=== PATIENT | female | born 1990 | race Caucasian/White ===

== ENCOUNTER 2021-02-01 13:13 | Observation (INO) ==
[2021-02-01 14:00] LABS: Basophils # (auto) 0.02 K/uL (0-0.2); Basophils % (auto) 0.1 %; Eosinophils # (auto) 0.01 K/uL (0-0.5); Eosinophils % (auto) 0.1 %; Hematocrit (blood only) 39.4 % (37-47); Hemoglobin 13.8 g/dL (12.0-16.0); Immature Granulocytes # (auto) 0.03 K/uL (0.00-0.02); Immature Granulocytes % (auto) 0.2 %; Lymphocytes % (auto) 18.7 %; Mean Corpuscular Hemoglobin 32.9 pg (25-34); Mean Platelet Volume 9.5 fL (7.4-10.4); Monocytes # (auto) 0.58 K/uL (0.11-0.59); Monocytes % (auto) 3.7 %; Neutrophils # (auto) 11.98 K/uL (1.4-6.5); Neutrophils % (auto) 77.2 %; Platelet Count 360 K/uL (130-400); RDW Standard Deviation 40.8 fL (36.4-46.3); Red Blood Count 4.19 M/uL (4.2-5.4); White Blood Count 15.52 K/uL (4.8-10.8)
[2021-02-01 14:18] LABS: BUN Creatinine Ratio 10.2 (10-20); Creatinine Clr Calc Pharmacy 102.6 ml/min; Est GFR (African American) 116.6 ml/min; Est GFR (Non-African American) 100.6 ml/min; Potassium 3.8 mmol/L (3.5-5.1)
[2021-02-01 14:20] LABS: Albumin Globulin Ratio 1.1 (0.9-2); Bilirubin,Total 0.3 mg/dl (0.2-1); Globulin 3.7 gm/dl (2.5-4.0); Total Protein 7.7 gm/dl (6.4-8.2)
[2021-02-01] MEDS ORDERED: ACETAMINOPHEN 1000 MG/100 ML IV IV ONE (16:15)
[2021-02-01] MEDS ORDERED: ONDANSETRON INJ 2 MG/ML 2 ML VIAL IV STA ×3 (16:15→23:25)
[2021-02-01 17:02] LABS: Appearance Urine Clear (Clear); Bacteria Urine Automated 1+ (Negative); Bilirubin Urine Negative (Negative); Blood Urine Negative (Negative); Color Urine Dark Yellow; Epithelial Cell Urine Auto >30 /lpf (0-5); Glucose Urine UA Negative (Negative); Ketones Urine 3+ (Negative); Leukocyte Esterase Urine Negative (Negative); Nitrite Urine Negative (Negative); Protein Urine Trace (Negative); Specific Gravity Urine 1.024 (1.000-1.030); Urobilinogen Urine Negative (Negative); pH Urine 5.5 (4.5-7.5)
[2021-02-01 17:18] LABS: RBC Urine Automated 0-4 /hpf (0-4)
--- NOTE | 2021-02-01 18:58 | Ultrasound Report ---
ULTRASOUND OF THE APPENDIX CLINICAL HISTORY: Right lower quadrant abdominal pain. COMPARISON STUDY: No priors. FINDINGS: Real-time, grayscale, and color flow sonography of the right lower quadrant was performed t o assess for acute appendicitis. The appendix was not discretely visualized. No inflammatory changes or free fluid are seen in the right lower quadrant. No lymphadenopathy was seen. IMPRESSION: Nonvisualization of the appendix. Note that this does not exclude acute appendicitis. ACT 112: Negative or not required by law. Electronically signed by: Justin Tobias M.D. 02/01/2021 6:57 PM
--- NOTE | 2021-02-01 19:02 | Ultrasound Report ---
ULTRASOUND OF THE PELVIS CLINICAL HISTORY: Right pelvic pain. The patient is reportedly . COMPARISON STUDY: No priors. TECHNIQUE: Real-time, grayscale, and color flow sonography of the pelvis is performed both transabdom inally and endovaginally. Images are reviewed in the transverse and longitudinal planes. The endovagi nal examination is performed for better assessment of the adnexa. FINDINGS: Uterus: The uterus is normal in size and echotexture, measuring 7.0 x 3.1 x 3.5 cm. Endometrium: No intrauterine gestation is identified. The endometrium is normal in appearance, and th e endometrial stripe is normal in thickness measuring up to 0.5 cm. Ovaries: The left ovary was not clearly visualized due to overlying bowel gas and complex free fluid. The right ovary is normal as imaged, measuring 2.6 x 1.2 x 2.7 cm. Normal Doppler waveforms are show n within the right ovary. Pelvis: Complex fluid is seen throughout the adnexa there is an indeterminant abnormal cystic structu re in the right adnexa which measures up to 1.5 cm. This may represent a gestational sac. The left k idney is located in the pelvis. IMPRESSION: 1. No intrauterine gestation is identified. 2. There is an abnormal cystic structure in the right adnexa which is discrete from the right ovary a nd may represent a gestational sac. Additionally, there is a moderate volume of complex free fluid se en throughout the pelvis that likely represents blood products. Findings are highly concerning for a ruptured ectopic . Gynecological surgical consultation is advised. 3. The left ovary was not visualized. 4. Left pelvic kidney. ACT 112: Negative or not required by law. Electronically signed by: Justin Tobias M.D. 02/01/2021 7:01 PM
[2021-02-01] MEDS ORDERED: MoRPHine SULFATE 4 MG/ML 1 ML CARP\\VIAL IV STA ×2 (20:01→23:25)
--- NOTE | 2021-02-01 20:25 | Emergency Department Note ---
History of Present Illness General Chief complaint: Abdominal Pain Stated complaint: RLQ ABDOMINAL PAIN,5 WKS ,NAUSEA,VOMITING Time Seen by Provider: 02/01/21 15:47 History of Present Illness Maximum Pain Intensity: 7 30-year-old female who presents to the emergency department with complaint of right lower quadrant abdominal pain that started this morning around 8:30 AM. The patient reports that the pain initially was intermittent in nature, and is now constant. The pain is worsened with ambulation and when trying to stand erect. The patient has had mild nausea without vomiting. The patient denies any urinary symptoms, diarrhea or constipation. The patient reports that she is currently approximately 5 weeks after undergoing in vitro fertilization. This was but done by at [facility] in [place]. The patient has had subsequent normal ultrasound studies since the transfer. Patient reports a prior history of a left pelvic kidney. She has had bilateral tubal ligation as well in March 2019. The patient rates her discomfort a 7 out of 10. Home Medications Medication Instructions Recorded Confirmed Type alprazolam 0.5 mg tablet (Xanax) 0.5 mg PO TID PRN 02/01/21 02/01/21 History estradiol 2 mg tablet (Estrace) 6 mg PO HS 02/01/21 02/01/21 History progesterone micronized 100 mg 0 mg VAGINAL TID 02/01/21 02/01/21 History capsule (Prometrium) ibuprofen 600 mg tablet 600 mg PO Q4H PRN #30 tab 02/02/21 Rx oxycodone-acetaminophen 5 mg-325 1 tab PO Q4H PRN #14 tab 02/02/21 Rx mg tablet (Percocet) Allergies Allergy/AdvReac Type Severity Reaction Status Date / Time latex Allergy Severe Anaphylaxis Verified 02/02/21 03:26 ,Rash avocado AdvReac Severe Anaphylaxis Verified 02/02/21 03:26 ,Rash Past Med/Surg History Medical History History of in vitro fertilization Peroneal tendonitis Single pelvic kidney Surgical History History of bilateral salpingectomy Social History Smoking Status: Never smoker Second Hand Exposure: No; Do You Dip or Chew Tobacco: No; Tobacco Cessation Education Requested by Patient: No Hx Alcohol Use: No Hx Substance Use: No Preferred Language: Vietnamese Communication Ability: Effective Bacteriologist Dairy Required: No Beliefs That Will Affect Care: None marital status: Single Current Living Situation: Significant Other current occupational status: employed Other Information That Helps Us Care for You: No Feels Safe at Home: Yes Assistive Devices: None Review of Systems 10 system review was performed and was negative except for pertinent positives and negatives as indicated in history of present illness Physical Exam Vital Signs Vital Signs - 24 hr 02/01/21 13:15 02/01/21 15:49 02/01/21 17:16 Temperature 36.6 C Temperature Source Temporal Artery Scan Pulse Rate 111 H Pulse Rate [Finger] 104 H 77 Respiratory Rate 18 17 16 Respiratory Effort / Characteristics Non-Labored Respiratory Depth Normal Respiratory Pattern Blood Pressure 140/88 Blood Pressure [Right Arm] 137/84 126/89 Blood Pressure Mean 105 Blood Pressure Mean [Right Arm] 101 101 Blood Pressure Position [Right Arm] Pulse Oximetry 95 98 96 Oxygen Delivery Method Room Air Room Air Sepsis Recent Fever Within 48 Hours No Sepsis New/Unexplained Change in Mental Status No Sepsis Action Taken by Nursing No Action Required 02/01/21 19:18 02/01/21 23:22 Temperature Temperature Source Pulse Rate Pulse Rate [Finger] 79 97 H Respiratory Rate 16 18 Respiratory Effort / Characteristics Non-Labored Spontaneous Respiratory Depth Normal Respiratory Pattern Regular Blood Pressure Blood Pressure [Right Arm] 126/88 121/76 Blood Pressure Mean Blood Pressure Mean [Right Arm] 100 91 Blood Pressure Position [Right Arm] Lying Pulse Oximetry 95 96 Oxygen Delivery Method Room Air Sepsis Recent Fever Within 48 Hours Sepsis New/Unexplained Change in Mental Status Sepsis Action Taken by Nursing CONSTITUTIONAL: Healthy and well nourished. Patient does not appear in any acute distress. HEENT: No scleral icterus or conjunctival injection/pallor. NECK: Full active range of motion without discomfort. LYMPHATICS: No cervical chain adenopathy. RESPIRATORY: Clear to auscultation bilaterally with no wheezing, crackles, rhonchi or stridor. CARDIOVASCULAR: Regular rate and rhythm with no murmurs, rubs or gallops. GASTROINTESTINAL: Bowel sounds present in all quadrants. McBurney's point tenderness with mildly positive Rovsing sign. Negative heel tap. Negative psoas/obturator sign. Negative CVA tenderness. No abdominal rigidity, guarding or rebound. MUSCULOSKELETAL: Full range of motion of all joints without discomfort. INTEGUMENTARY: No rash or other significant dermatologic conditions noted. HEMATOLOGIC: No ecchymosis or petechiae. PSYCHIATRIC: Positive affect. NEUROLOGIC: No focal neurologic deficits noted. Course Course Patient history and physical exam were performed. Nurses notes were reviewed. Vital signs were reviewed, showing an initial heart rate of 111 bpm. The patient is afebrile and normotensive. IV access was established, and labs were drawn. The patient was administered IV Tylenol and Zofran. Review of labs shows a moderate leukocytosis of 15.52 with left shift and bandemia. Hemoglobin and platelet count are normal. CMP shows a mildly elevated glucose of 137, otherwise remaining labs were normal. Initial quantitative hCG could not be performed secondary to hemolysis. A recollect was performed with a notable delay with results showing a quantitative hCG of 935. Urinalysis shows 3+ keton uria, proteinuria without evidence for infection. I discussed imaging choice with the radiologist, who recommended performing initial ultrasound of the appendix and pelvis. Ultrasound was concerning for a possible hemorrhagic ectopic , seen adjacent to the right ovary. Ultrasound does not show any intrauterine findings or sac. The appendix could not be visualized with ultrasound studies. Findings were discussed with the patient. The case was also further discussed with Dr. Smith, as well as Dr. Rosen, [facility] on-call. Given history of IVF, she does not suspect that this is a hemorrhagic ectopic , but has recommended further imaging to rule out appendicitis. She also noted that the patient has previously been seen by Dr. Sullivan, and recommended that I call the [facility] service with quantitative hCG levels when completed. I discussed the case again with Dr. Smith, who was in agreement at this point to do CT imaging since there is no evidence for intrauterine . The patient is in agreement with this decision as well. CT of the abdomen and pelvis with IV contrast was concerning for active extravasation. At this point, urgent consultation was placed with Dr. Sullivan. A repeat H&H was drawn, with a 1.5 g/dL drop over the past 5 hours. Type and cross for 4 units of blood, and administration of 2 units of packed red blood cells were ordered. The patient did sign informed consent for blood transfusion. Dr. Sullivan evaluate the patient, and plans operative intervention. Please see her dictation for further treatment and final disposition. While the patient was awaiting transfer to the the OR, COVID-19 PCR testing was ordered and was negative. The patient also was administered IV morphine and Zofran for pain and nausea. Please see Dr. Sullivan's dictation for further treatment and final disposition. Administered Medications Lactated Ringer's (Lr) 1,000 mls @ 125 mls/hr IV .Q8H DIONTE Stop: 03/04/21 00:14 Last Infusion: 02/02/21 09:00 Dose: 0 mls/hr Documented by: [id number] Infusion: 02/02/21 06:40 Dose: 125 mls/hr Documented by: [id number] Infusion: 02/02/21 06:24 Dose: 0 mls/hr Documented by: [id number] Admin: 02/02/21 03:58 Dose: 125 mls/hr Documented by: [id number] Acetaminophen (Ofirmev) 1,000 mg in 100 mls @ 400 mls/hr IV Q8H PRN PRN Reason: Pain Stop: 02/05/21 01:30 Last Infusion: 02/02/21 06:40 Dose: 0 mls/hr Documented by: [id number] Admin: 02/02/21 06:24 Dose: 400 mls/hr Documented by: [id number] Ibuprofen (Ibuprofen 600 Mg Tab) 600 mg PO Q4H PRN PRN Reason: pain, ASHLEY, cramping or fever Stop: 03/04/21 00:04 Last Admin: 02/02/21 09:18 Dose: 600 mg Documented by: [id number] Simethicone (Simethicone 80 Mg Chew) 80 mg PO TID PRN PRN Reason: Gas Stop: 03/04/21 00:04 Last Admin: 02/02/21 06:14 Dose: 80 mg Documented by: [id number] Discontinued Medications Acetaminophen (Acetaminophen 1000 Mg/100 Ml Iv) 1,000 mg IV ONE ONE Stop: 02/01/21 16:16 Last Admin: 02/01/21 16:28 Dose: 1,000 mg Documented by: [id number] Bupivacaine HCl (Bupivacaine 0.5 % 5 Mg/1 Ml Mpf 30ml Vial) Confirm Administered Dose 30 ml .ROUTE .STK-MED ONE Stop: 02/01/21 23:46 Last Admin: 02/02/21 01:23 Dose: 12 ml Documented by: [id number] Epinephrine HCl (Epinephrine Inj 1 Mg/Ml Amp) Confirm Administered Dose 1 mg .ROUTE .STK-MED ONE Stop: 02/01/21 23:46 Last Admin: 02/02/21 01:25 Dose: 0.15 mg Documented by: [id number] Cefazolin Sodium (Ancef 2000mg) 2,000 mg in 15 mls @ 3.75 mls/min IV PREOP ONE Stop: 02/01/21 22:36 Last Admin: 02/01/21 22:44 Dose: 3.75 mls/min Documented by: [id number] Ioversol (Optiray 320 100ml) 97 ml IV ONCE ONE Stop: 02/01/21 20:40 Last Admin: 02/01/21 20:39 Dose: 97 ml Documented by: [id number] Miscellaneous ( Floseal Hemostatic Matrix 10ml) 10 ml TOP ONCE ONE Stop: 02/02/21 01:27 Last Admin: 02/02/21 01:26 Dose: 10 ml Documented by: [id number] Morphine Sulfate (Morphine Sulfate 4 Mg/Ml 1 Ml Carp\Vial) 4 mg IV NOW STA Stop: 02/01/21 20:02 Last Admin: 02/01/21 20:09 Dose: 4 mg Documented by: [id number] Ondansetron HCl (Ondansetron Inj 2 Mg/Ml 2 Ml Vial) 4 mg IV NOW STA Stop: 02/01/21 16:16 Last Admin: 02/01/21 16:28 Dose: 4 mg Documented by: [id number] Ondansetron HCl (Ondansetron Inj 2 Mg/Ml 2 Ml Vial) 4 mg IV NOW STA Stop: 02/01/21 20:02 Last Admin: 02/01/21 20:09 Dose: 4 mg Documented by: [id number] Ondansetron HCl (Ondansetron Inj 2 Mg/Ml 2 Ml Vial) 4 mg IV ONCE PRN PRN Reason: PACU Use Only-Nausea/Vomiting Stop: 02/02/21 08:25 Last Admin: 02/02/21 02:14 Dose: 4 mg Documented by: [id number] Critical Care Time Critical Care Time: Yes Total Critical Care Time: 40 I have personally spent approximately 40 minutes of critical care time in the direct management of this patient. This includes bedside care, interpretation of diagnostic studies, and testing, discussion with consultants, patient, and family members, and other required patient management activities. This 40 minutes is in excess of all separately billable procedures. The patient is a high risk for complication given worsening extravasation from a probable ruptured ectopic . The patient was ordered and administered a blood transfusion as I suspect that her hemoglobin level will drop significantly. The patient will be going to the OR for further surgical management by WATCH DIAL [employer]ER. Medical Decision Making Medical Records Attestation: I reviewed the patient's medical records. Home Medications Current Medication List: was personally reviewed by me Laboratory Data Attestation: I reviewed the patient's lab results. Result diagrams: 02/02/21 06:14 02/01/21 13:43 Lab Results 02/01/21 02/01/21 02/01/21 Range/Units 13:43 13:43 16:38 WBC 15.52 H (4.8-10.8) K/uL RBC 4.19 L (4.2-5.4) M/uL Hgb 13.8 (12.0-16.0) g/dL Hct 39.4 (37-47) % MCV 94.0 (80-100) fL MCH 32.9 (25-34) pg MCHC 35.0 (32-36) g/dL RDW Std Deviation 40.8 (36.4-46.3) fL RDW Coeff of Diamond 12.0 (11.5-14.5) % Plt Count 360 (130-400) K/uL MPV 9.5 (7.4-10.4) fL Immature Gran % (Auto) 0.2 % Neut % (Auto) 77.2 % Lymph % (Auto) 18.7 % Williams % (Auto) 3.7 % Eos % (Auto) 0.1 % Baso % (Auto) 0.1 % Neut # (Auto) 11.98 H (1.4-6.5) K/uL Lymph # (Auto) 2.90 (1.2-3.4) K/uL Williams # (Auto) 0.58 (0.11-0.59) K/uL Eos # (Auto) 0.01 (0-0.5) K/uL Baso # (Auto) 0.02 (0-0.2) K/uL Immature Gran # (Auto) 0.03 H (0.00-0.02) K/uL Sodium 136 (136-145) mmol/L Potassium 3.8 (3.5-5.1) mmol/L Chloride 107 (98-107) mmol/L Carbon Dioxide 21 (21-32) mmol/L Anion Gap 8.0 (3-11) BUN 8 (7-18) mg/dl Creatinine 0.78 (0.6-1.2) mg/dl Est Cr Clr Drug Dosing 102.6 ml/min Est GFR ( Amer) 116.6 ml/min Est GFR (Non-Af Amer) 100.6 ml/min BUN/Creatinine Ratio 10.2 (10-20) Glucose 137 H (70-99) mg/dl Calcium 9.0 (8.5-10.1) mg/dl Total Bilirubin 0.3 (0.2-1) mg/dl AST 19 (15-37) U/L ALT 35 (12-78) U/L Alkaline Phosphatase 65 (45-117) U/L Total Protein 7.7 (6.4-8.2) gm/dl Albumin 4.0 (3.4-5.0) gm/dl Globulin 3.7 (2.5-4.0) gm/dl Albumin/Globulin Ratio 1.1 (0.9-2) Lipase 128 (73-393) U/L HCG, Quant Urine Color Dark Yellow Urine Appearance Clear (Clear) Urine pH 5.5 (4.5-7.5) Ur Specific [place] 1.024 (1.000-1.030) Urine Protein Trace H (Negative) Urine Glucose (UA) Negative (Negative) Urine Ketones 3+ H (Negative) Urine Blood Negative (Negative) Urine Nitrite Negative (Negative) Urine Bilirubin Negative (Negative) Urine Urobilinogen Negative (Negative) Ur Leukocyte Esterase Negative (Negative) Urine WBC (Auto) 5-10 H (0-5) /hpf Urine RBC (Auto) 0-4 (0-4) /hpf U Hyaline Cast (Auto) 5-10 H (0-5) /lpf U Epithel Cells (Auto) >30 H (0-5) /lpf Urine Bacteria (Auto) 1+ H (Negative) COVID-19 Eval Order SARS-CoV-2 (PCR) (Negative) Blood Type Blood Type Recheck Antibody Screen Crossmatch 02/01/21 02/01/21 02/01/21 Range/Units 17:04 18:59 21:20 WBC (4.8-10.8) K/uL RBC (4.2-5.4) M/uL Hgb (12.0-16.0) g/dL Hct (37-47) % MCV (80-100) fL MCH (25-34) pg MCHC (32-36) g/dL RDW Std Deviation (36.4-46.3) fL RDW Coeff of Diamond (11.5-14.5) % Plt Count (130-400) K/uL MPV (7.4-10.4) fL Immature Gran % (Auto) % Neut % (Auto) % Lymph % (Auto) % Williams % (Auto) % Eos % (Auto) % Baso % (Auto) % Neut # (Auto) (1.4-6.5) K/uL Lymph # (Auto) (1.2-3.4) K/uL Williams # (Auto) (0.11-0.59) K/uL Eos # (Auto) (0-0.5) K/uL Baso # (Auto) (0-0.2) K/uL Immature Gran # (Auto) (0.00-0.02) K/uL Sodium (136-145) mmol/L Potassium (3.5-5.1) mmol/L Chloride (98-107) mmol/L Carbon Dioxide (21-32) mmol/L Anion Gap (3-11) BUN (7-18) mg/dl Creatinine (0.6-1.2) mg/dl Est Cr Clr Drug Dosing ml/min Est GFR ( Amer) ml/min Est GFR (Non-Af Amer) ml/min BUN/Creatinine Ratio (10-20) Glucose (70-99) mg/dl Calcium (8.5-10.1) mg/dl Total Bilirubin (0.2-1) mg/dl AST (15-37) U/L ALT (12-78) U/L Alkaline Phosphatase (45-117) U/L Total Protein (6.4-8.2) gm/dl Albumin (3.4-5.0) gm/dl Globulin (2.5-4.0) gm/dl Albumin/Globulin Ratio (0.9-2) Lipase (73-393) U/L HCG, Quant Cancelled 935 Urine Color Urine Appearance (Clear) Urine pH (4.5-7.5) Ur Specific [place] (1.000-1.030) Urine Protein (Negative) Urine Glucose (UA) (Negative) Urine Ketones (Negative) Urine Blood (Negative) Urine Nitrite (Negative) Urine Bilirubin (Negative) Urine Urobilinogen (Negative) Ur Leukocyte Esterase (Negative) Urine WBC (Auto) (0-5) /hpf Urine RBC (Auto) (0-4) /hpf U Hyaline Cast (Auto) (0-5) /lpf U Epithel Cells (Auto) (0-5) /lpf Urine Bacteria (Auto) (Negative) COVID-19 Eval Order SARS-CoV-2 (PCR) (Negative) Blood Type O Positive Blood Type Recheck Antibody Screen NEGATIVE Crossmatch See Detail 02/01/21 02/01/21 02/01/21 Range/Units 21:20 21:23 22:20 WBC (4.8-10.8) K/uL RBC (4.2-5.4) M/uL Hgb 12.3 (12.0-16.0) g/dL Hct 35.7 L (37-47) % MCV (80-100) fL MCH (25-34) pg MCHC (32-36) g/dL RDW Std Deviation (36.4-46.3) fL RDW Coeff of Diamond (11.5-14.5) % Plt Count (130-400) K/uL MPV (7.4-10.4) fL Immature Gran % (Auto) % Neut % (Auto) % Lymph % (Auto) % Williams % (Auto) % Eos % (Auto) % Baso % (Auto) % Neut # (Auto) (1.4-6.5) K/uL Lymph # (Auto) (1.2-3.4) K/uL Williams # (Auto) (0.11-0.59) K/uL Eos # (Auto) (0-0.5) K/uL Baso # (Auto) (0-0.2) K/uL Immature Gran # (Auto) (0.00-0.02) K/uL Sodium (136-145) mmol/L Potassium (3.5-5.1) mmol/L Chloride (98-107) mmol/L Carbon Dioxide (21-32) mmol/L Anion Gap (3-11) BUN (7-18) mg/dl Creatinine (0.6-1.2) mg/dl Est Cr Clr Drug Dosing ml/min Est GFR ( Amer) ml/min Est GFR (Non-Af Amer) ml/min BUN/Creatinine Ratio (10-20) Glucose (70-99) mg/dl Calcium (8.5-10.1) mg/dl Total Bilirubin (0.2-1) mg/dl AST (15-37) U/L ALT (12-78) U/L Alkaline Phosphatase (45-117) U/L Total Protein (6.4-8.2) gm/dl Albumin (3.4-5.0) gm/dl Globulin (2.5-4.0) gm/dl Albumin/Globulin Ratio (0.9-2) Lipase (73-393) U/L HCG, Quant Urine Color Urine Appearance (Clear) Urine pH (4.5-7.5) Ur Specific [place] (1.000-1.030) Urine Protein (Negative) Urine Glucose (UA) (Negative) Urine Ketones (Negative) Urine Blood (Negative) Urine Nitrite (Negative) Urine Bilirubin (Negative) Urine Urobilinogen (Negative) Ur Leukocyte Esterase (Negative) Urine WBC (Auto) (0-5) /hpf Urine RBC (Auto) (0-4) /hpf U Hyaline Cast (Auto) (0-5) /lpf U Epithel Cells (Auto) (0-5) /lpf Urine Bacteria (Auto) (Negative) COVID-19 Eval Order Covid19 at [facility] SARS-CoV-2 (PCR) (Negative) Blood Type Blood Type Recheck O Positive Antibody Screen Crossmatch 02/01/21 Range/Units 22:20 WBC (4.8-10.8) K/uL RBC (4.2-5.4) M/uL Hgb (12.0-16.0) g/dL Hct (37-47) % MCV (80-100) fL MCH (25-34) pg MCHC (32-36) g/dL RDW Std Deviation (36.4-46.3) fL RDW Coeff of Diamond (11.5-14.5) % Plt Count (130-400) K/uL MPV (7.4-10.4) fL Immature Gran % (Auto) % Neut % (Auto) % Lymph % (Auto) % Williams % (Auto) % Eos % (Auto) % Baso % (Auto) % Neut # (Auto) (1.4-6.5) K/uL Lymph # (Auto) (1.2-3.4) K/uL Williams # (Auto) (0.11-0.59) K/uL Eos # (Auto) (0-0.5) K/uL Baso # (Auto) (0-0.2) K/uL Immature Gran # (Auto) (0.00-0.02) K/uL Sodium (136-145) mmol/L Potassium (3.5-5.1) mmol/L Chloride (98-107) mmol/L Carbon Dioxide (21-32) mmol/L Anion Gap (3-11) BUN (7-18) mg/dl Creatinine (0.6-1.2) mg/dl Est Cr Clr Drug Dosing ml/min Est GFR ( Amer) ml/min Est GFR (Non-Af Amer) ml/min BUN/Creatinine Ratio (10-20) Glucose (70-99) mg/dl Calcium (8.5-10.1) mg/dl Total Bilirubin (0.2-1) mg/dl AST (15-37) U/L ALT (12-78) U/L Alkaline Phosphatase (45-117) U/L Total Protein (6.4-8.2) gm/dl Albumin (3.4-5.0) gm/dl Globulin (2.5-4.0) gm/dl Albumin/Globulin Ratio (0.9-2) Lipase (73-393) U/L HCG, Quant Urine Color Urine Appearance (Clear) Urine pH (4.5-7.5) Ur Specific [place] (1.000-1.030) Urine Protein (Negative) Urine Glucose (UA) (Negative) Urine Ketones (Negative) Urine Blood (Negative) Urine Nitrite (Negative) Urine Bilirubin (Negative) Urine Urobilinogen (Negative) Ur Leukocyte Esterase (Negative) Urine WBC (Auto) (0-5) /hpf Urine RBC (Auto) (0-4) /hpf U Hyaline Cast (Auto) (0-5) /lpf U Epithel Cells (Auto) (0-5) /lpf Urine Bacteria (Auto) (Negative) COVID-19 Eval Order SARS-CoV-2 (PCR) NEGATIVE (Negative) Blood Type Blood Type Recheck Antibody Screen Crossmatch Imaging Data Attestation: I personally reviewed and interpreted this imaging study as david shah: My Impression: Appendix ultrasound was unable to visualize the appendix. ultrasound showed an abnormal cystic structure in the right adnexa which is discrete from the right ovary, with moderate volume of complex free fluid seen through the pelvis that likely represents blood products. Radiologist was concerned for possible ruptured ectopic . CT with IV contrast of the abdomen and pelvis Radiologist reports were also reviewed. Radiologist's Impression: Appendix Ultrasound 02/01/21 16:18 ULTRASOUND OF THE APPENDIX CLINICAL HISTORY: Right lower quadrant abdominal pain. COMPARISON STUDY: No priors. FINDINGS: Real-time, grayscale, and color flow sonography of the right lower quadrant was performed to assess for acute appendicitis. The appendix was not discretely visualized. No inflammatory changes or free fluid are seen in the right lower quadrant. No lymphadenopathy was seen. IMPRESSION: Nonvisualization of the appendix. Note that this does not exclude acute appendicitis. ACT 112: Negative or not required by law. Electronically signed by: Justin Tobias M.D. 02/01/2021 6:57 PM Ultrasound 02/01/21 16:18 ULTRASOUND OF THE PELVIS CLINICAL HISTORY: Right pelvic pain. The patient is reportedly . COMPARISON STUDY: No priors. TECHNIQUE: Real-time, grayscale, and color flow sonography of the pelvis is performed both transabdominally and endovaginally. Images are reviewed in the t ransverse and longitudinal planes. The endovaginal examination is performed for better assessment of the adnexa. FINDINGS: Uterus: The uterus is normal in size and echotexture, measuring 7.0 x 3.1 x 3.5 cm. Endometrium: No intrauterine gestation is identified. The endometrium is normal in appearance, and the endometrial stripe is normal in thickness measuring up to 0.5 cm. Ovaries: The left ovary was not clearly visualized due to overlying bowel gas and complex free fluid. The right ovary is normal as imaged, measuring 2.6 x 1.2 x 2.7 cm. Normal Doppler waveforms are shown within the right ovary. Pelvis: Complex fluid is seen throughout the adnexa there is an indeterminant abnormal cystic structure in the right adnexa which measures up to 1.5 cm. This may represent a gestational sac. The left kidney is located in the pelvis. IMPRESSION: 1. No intrauterine gestation is identified. 2. There is an abnormal cystic structure in the right adnexa which is discrete from the right ovary and may represent a gestational sac. Additionally, there is a moderate volume of complex free fluid seen throughout the pelvis that likely represents blood products. Findings are highly concerning for a ruptured ectopic . Gynecological surgical consultation is advised. 3. The left ovary was not visualized. 4. Left pelvic kidney. ACT 112: Negative or not required by law. Electronically signed by: Justin Tobias M.D. 02/01/2021 7:01 PM Transvaginal US 02/01/21 18:45 ULTRASOUND OF THE PELVIS CLINICAL HISTORY: Right pelvic pain. The patient is reportedly . COMPARISON STUDY: No priors. TECHNIQUE: Real-time, grayscale, and color flow sonography of the pelvis is performed both transabdominally and endovaginally. Images are reviewed in the transverse and longitudinal planes. The endovaginal examination is performed for better assessment of the adnexa. FINDINGS: Uterus: The uterus is normal in size and echotexture, measuring 7.0 x 3.1 x 3.5 cm. Endometrium: No intrauterine gestation is identified. The endometrium is normal in appearance, and the endometrial stripe is normal in thickness measuring up to 0.5 cm. Ovaries: The left ovary was not clearly visualized due to overlying bowel gas and complex free fluid. The right ovary is normal as imaged, measuring 2.6 x 1.2 x 2.7 cm. Normal Doppler waveforms are shown within the right ovary. Pelvis: Complex fluid is seen throughout the adnexa there is an indeterminant abnormal cystic structure in the right adnexa which measures up to 1.5 cm. This may represent a gestational sac. The left kidney is located in the pelvis. IMPRESSION: 1. No intrauterine gestation is identified. 2. There is an abnormal cystic structure in the right adnexa which is discrete from the right ovary and may represent a gestational sac. Additionally, there is a moderate volume of complex free fluid seen throughout the pelvis that likely represents blood products. Findings are highly concerning for a ruptured ectopic . Gynecological surgical consultation is advised. 3. The left ovary was not visualized. 4. Left pelvic kidney. ACT 112: Negative or not required by law. Electronically signed by: Justin Tobias M.D. 02/01/2021 7:01 PM Abdomen/Pelvis CT 02/01/21 19:47 CT SCAN OF THE ABDOMEN AND PELVIS WITH IV CONTRAST CLINICAL HISTORY: Right lower quadrant abdominal pain. Nausea. COMPARISON STUDY: Ultrasound the right lower quadrant and pelvis dated 02/01/2021. TECHNIQUE: Following the IV administration of 97 cc of Optiray 320, CT scan of the abdomen and pelvis is performed from the lung bases to the proximal femora. Images are reviewed in the axial, sagittal, and coronal planes. IV contrast was administered without complication. A dose lowering technique was utilized adhering to the principles of ALARA. CT DOSE: 398.44 mGy.cm FINDINGS: Lung bases: The heart is normal in size and without pericardial effusion. Dependent airspace opacities likely represent atelectasis. No pleural effusion is identified. There is a small hiatal hernia. Liver: The contrast-enhanced liver is normal in size, contour, and attenuation. There is no intrahepatic biliary ductal dilatation. The hepatic veins and portal veins are patent. Gallbladder: Surgically absent noting clips in the gallbladder fossa. Spleen: Normal in size and attenuation. Pancreas: Unremarkable. Adrenal glands: Unremarkable. Kidneys: The left kidney is located in the pelvis. The contrast enhanced kidneys are normal in size and without hydronephrosis. The kidneys enhance symmetrical ly. Abdominal vasculature: The abdominal aorta is normal in course and caliber. Bowel: The small bowel and colon are normal in course and caliber. The appendix is well-visualized and normal. Peritoneum: A small volume of minimally complex free fluid is seen in the upper abdomen around the liver and spleen. No intraperitoneal free air is identified. Lymphadenopathy: None. Pelvic viscera: The bladder and uterus are normal as visualized. There is a moderate volume of complex free fluid in the pelvis. A focus of active extravasation is identified in the right adnexa on axial image #356. The right ovary is not delineated due to surrounding fluid. Skeletal structures: No lytic or blastic lesions are seen. IMPRESSION: 1. There is a moderate complex volume of free fluid in the pelvis consistent with hemoperitoneum. Blood products are also seen in the upper abdomen around t he liver and spleen. 2. There is a focus of active extravasation identified in the right adnexa. The adnexal structures are not well-visualized due to surrounding blood products. When correlated with today's ultrasound findings this remains highly concerning for a ruptured ectopic . Surgical assessment is advised. 3. Left pelvic kidney is incidentally noted. 4. Dependent airspace opacities likely represent atelectasis. Clinical correlation will be required. ACT 112: Negative or not required by law. Electronically signed by: Justin Tobias M.D. 02/01/2021 8:50 PM Blood Pressure Blood Pressure Findings: Normal blood pressure MDM Narrative Presents the emergency department with complaint of right lower quadrant pain. The patient has recently undergone in vitro fertilization. Ultrasound and CT imaging is concerning at this time for an active bleed within the right adnexa, possibly from a ruptured ectopic . It is noted that the patient has remained hemodynamically stable while in the emergency department. WATCH DIAL MAKER has elected to take the patient to the OR for further operative management. CT imaging does not show evidence for acute appendicitis, bowel obstruction or abdominal free air, which is not suggestive of bowel perforation. Impression & Plan Ruptured ectopic , Hemoperitoneum Discharge Plan Visit Data Chief Complaint: Abdominal Pain Stated Complaint: RLQ ABDOMINAL PAIN,5 WKS ,NAUSEA,VOMITING ED Provider: Zane Meléndez ED Midlevel Provider: Scott Raphael Discharge Problem: Ruptured ectopic , Hemoperitoneum Patient Disposition: Admitted As Inpatient Discharge Instructions Interventions: ED Discharge Assessment Last Done: 02/01/21 23:28 Addendum February 02, 2021 12:42 Patient was seen in conjunction with the physician nurses assistant, please see his note for full details. Patient presented to the emergency department with some right lower quadrant pain, she is actively undergoing IVF, recently had an implantation performed and was positive for via home test. Ultrasound imaging shows concern for ruptured ectopic on the right adnexa, follow-up CT imaging was performed given that there was no evidence of an intrauterine , this shows evidence of what appears to be intraperitoneal hemorrhage. 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 Patient remained hemodynamically stable while here in the ED, WATCH DIAL MAKER was emergently consulted and assessed the patient and patient was taken emergently to the operating room for definitive care. Patient was updated, on my examination she is well-appearing with some right-sided abdominal tenderness however without tachycardia or hypotension. She was in agreement to the above plan she was transferred to the operating room in stable condition for definitive care.
[2021-02-01] MEDS ORDERED: OPTIRAY 320 100ml IV ONE (20:39)
--- NOTE | 2021-02-01 20:51 | CT Scan Report ---
CT SCAN OF THE ABDOMEN AND PELVIS WITH IV CONTRAST CLINICAL HISTORY: Right lower quadrant abdominal pain. Nausea. COMPARISON STUDY: Ultrasound the right lower quadrant and pelvis dated 02/01/2021. TECHNIQUE: Following the IV administration of 97 cc of Optiray 320, CT scan of the abdomen and pelvi s is performed from the lung bases to the proximal femora. Images are reviewed in the axial, sagittal , and coronal planes. IV contrast was administered without complication. A dose lowering technique wa s utilized adhering to the principles of ALARA. CT DOSE: 398.44 mGy.cm FINDINGS: Lung bases: The heart is normal in size and without pericardial effusion. Dependent airspace opacitie s likely represent atelectasis. No pleural effusion is identified. There is a small hiatal hernia. Liver: The contrast-enhanced liver is normal in size, contour, and attenuation. There is no intrahepa tic biliary ductal dilatation. The hepatic veins and portal veins are patent. Gallbladder: Surgically absent noting clips in the gallbladder fossa. Spleen: Normal in size and attenuation. Pancreas: Unremarkable. Adrenal glands: Unremarkable. Kidneys: The left kidney is located in the pelvis. The contrast enhanced kidneys are normal in size a nd without hydronephrosis. The kidneys enhance symmetrically. Abdominal vasculature: The abdominal aorta is normal in course and caliber. Bowel: The small bowel and colon are normal in course and caliber. The appendix is well-visualized a nd normal. Peritoneum: A small volume of minimally complex free fluid is seen in the upper abdomen around the li heri and spleen. No intraperitoneal free air is identified. Lymphadenopathy: None. Pelvic viscera: The bladder and uterus are normal as visualized. There is a moderate volume of comple x free fluid in the pelvis. A focus of active extravasation is identified in the right adnexa on axia l image #356. The right ovary is not delineated due to surrounding fluid. Skeletal structures: No lytic or blastic lesions are seen. IMPRESSION: 1. There is a moderate complex volume of free fluid in the pelvis consistent with hemoperitoneum. Blo od products are also seen in the upper abdomen around the liver and spleen. 2. There is a focus of active extravasation identified in the right adnexa. The adnexal structures ar e not well-visualized due to surrounding blood products. When correlated with today's ultrasound find ings this remains highly concerning for a ruptured ectopic . Surgical assessment is advised. 3. Left pelvic kidney is incidentally noted. 4. Dependent airspace opacities likely represent atelectasis. Clinical correlation will be required. ACT 112: Negative or not required by law. Electronically signed by: Justin Tobias M.D. 02/01/2021 8:50 PM
[2021-02-01] MEDS ORDERED: SODIUM CHLORIDE 0.9% 250 ML IV PRN (21:03)
[2021-02-01 21:27] LABS: Hematocrit (blood only) 35.7 % (37-47); Hemoglobin 12.3 g/dL (12.0-16.0)
[2021-02-01] MEDS ORDERED: ceFAZolin 2000MG 2,000 MG/15 ML SYR IV ONE (22:33)
--- NOTE | 2021-02-01 22:34 | History & Physical Report ---
Date of Service February 01, 2021 Assessment & Plan (1) History of bilateral salpingectomy: (2) Single pelvic kidney: (3) History of in vitro fertilization: (4) Ectopic without intrauterine : Plan: G1-year-old -0-1-0 at 5+ weeks by last menstrual period, IVF with embryo transfer on January 11. Abnormal beta-hCG count, no intrauterine , moderate to large amount of fluid in the pelvis and abdomen, suggesting right ectopic with active bleeding, history of right salpingectomy, unicornuate uterus, left pelvic kidney, Vital signs stable afebrile, H&H is stable, Discussed the above findings and recommended surgical treatment of ectopic , stop bleeding from adnexa, possible right oophorectomy, possible laparotomy. Understands is a major surgery with risks of anesthesia, bleeding, infection, injury to surrounding organs like bowels, bladder, ureters and infertility. She understands all and signed an informed consent. All questions were answered. (5) Free fluid in pelvis: History of Present Illness Primary Care Provider: NO PCP Patient is a 30-year-old -0-1-0 at 5+ weeks by last period, With a history of IVF, embryo transfer on January [address] Calix in [facility]. She had beta-hCG levels checked and they have been increasing appropriately until yesterday when it was 1511 at [facility] office. She has a history of unicornuate uterus with absent left tube, left pelvic kidney, normal ovaries, right hydrosalpinx. She had laparoscopic right salpingectomy on March [address] Tucker. She has been trying for with him since then. She started to have right lower quadrant pain this morning, it got worse and severe during the day and she presented to ER in early afternoon. It has been sharp and constant pain, intensity is 8-9 out of 10 despite she received morphine in the ER. It made her nauseous and vomited once. She denies vaginal bleeding, fever chills, chest pain shortness of breath, dizziness, problem with urination nor bowel movements. She also has upper abdominal pain especially when taking deep breath. She has a history of laparoscopic cholecystectomy without complications. No other surgeries. She denies medical problems other than above and anxiety for which she takes Xanax as needed. She denies history of pelvic infections, PID, STDs, abnormal Pap smears. She has been with same partner for 9 years. She has history of spontaneous about 11 years ago without complications. I was called by ER doctor that her beta hCG dropped today to 935 and ultrasound showing right adnexal lesion suspicious for ectopic with moderate amount of fluid collection in the pelvis. CT of abdomen and pelvis was performed and it showed moderate to large amount of fluid in the pelvis extending into the right upper abdomen. I spoke with radiologist forensic economist and he states he saw active extravasation of blood from right adnexa suspicious for bleeding from ectopic . Patient has been stable and her H&H has been stable. I discussed the findings above and recommended laparoscopy, surgical treatment of active , possible right oophorectomy possible laparotomy. We also discussed the other options as expectant management and medical management with methotrexate but due to ongoing bleeding and above findings those may be risky for her. She understands all and signed an informed consent for surgery Allergies Allergy/AdvReac Type Severity Reaction Status Date / Time latex Allergy Severe Anaphylaxis Unverified 02/01/21 17:27 ,Rash avocado AdvReac Severe Anaphylaxis Unverified 02/01/21 17:27 ,Rash Home Medications Medication Instructions Recorded Confirmed Type alprazolam 0.5 mg tablet (Xanax) 0.5 mg PO TID PRN 02/01/21 02/01/21 History estradiol 2 mg tablet (Estrace) 6 mg PO HS 02/01/21 02/01/21 History progesterone micronized 100 mg 0 mg VAGINAL TID 02/01/21 02/01/21 History capsule (Prometrium) Patient History Medical History History of in vitro fertilization Peroneal tendonitis Single pelvic kidney Surgical History History of bilateral salpingectomy Social History Smoking Status: Former smoker marital status: Single current occupational status: employed Feels Safe at Home: Yes Review of Systems as per Subjective / HPI Physical Exam Constitutional: WD/WN, vitals as above well developed, well nourished and + acute distress Gastrointestinal (Abdomen): Inspection/Auscultation: abdomen normal to inspection Percussion/Palpation: + abdomen tender, + guarding (On the right lower quadrant as well as right upper quadrant) and + abdomen rigid Genitourinary: Deferred Results & Data ([facility]) Vital Signs (Past 12 Hours) Vital Signs Temp Pulse Pulse Resp BP BP Pulse Ox 02/01/21 19:18 79 16 126/88 95 02/01/21 17:16 77 16 126/89 96 02/01/21 15:49 104 H 17 137/84 98 02/01/21 13:15 36.6 C 111 H 18 140/88 95 Laboratory Results Intake & Output 02/01/21 02/01/21 02/01/21 06:59 14:59 22:59 Weight 81.8 kg 81.8 kg Lab Results 02/01/21 02/01/21 02/01/21 Range/Units 13:43 13:43 16:38 WBC 15.52 H (4.8-10.8) K/uL RBC 4.19 L (4.2-5.4) M/uL Hgb 13.8 (12.0-16.0) g/dL Hct 39.4 (37-47) % MCV 94.0 (80-100) fL MCH 32.9 (25-34) pg MCHC 35.0 (32-36) g/dL RDW Std Deviation 40.8 (36.4-46.3) fL RDW Coeff of Diamond 12.0 (11.5-14.5) % Plt Count 360 (130-400) K/uL MPV 9.5 (7.4-10.4) fL Immature Gran % (Auto) 0.2 % Neut % (Auto) 77.2 % Lymph % (Auto) 18.7 % Burnett % (Auto) 3.7 % Eos % (Auto) 0.1 % Baso % (Auto) 0.1 % Neut # (Auto) 11.98 H (1.4-6.5) K/uL Lymph # (Auto) 2.90 (1.2-3.4) K/uL [place] # (Auto) 0.58 (0.11-0.59) K/uL Eos # (Auto) 0.01 (0-0.5) K/uL Baso # (Auto) 0.02 (0-0.2) K/uL Immature Gran # (Auto) 0.03 H (0.00-0.02) K/uL Sodium 136 (136-145) mmol/L Potassium 3.8 (3.5-5.1) mmol/L Chloride 107 (98-107) mmol/L Carbon Dioxide 21 (21-32) mmol/L Anion Gap 8.0 (3-11) BUN 8 (7-18) mg/dl Creatinine 0.78 (0.6-1.2) mg/dl Est Cr Clr Drug Dosing 102.6 ml/min Est GFR ( Amer) 116.6 ml/min Est GFR (Non-Af Amer) 100.6 ml/min BUN/Creatinine Ratio 10.2 (10-20) Glucose 137 H (70-99) mg/dl Calcium 9.0 (8.5-10.1) mg/dl Total Bilirubin 0.3 (0.2-1) mg/dl AST 19 (15-37) U/L ALT 35 (12-78) U/L Alkaline Phosphatase 65 (45-117) U/L Total Protein 7.7 (6.4-8.2) gm/dl Albumin 4.0 (3.4-5.0) gm/dl Globulin 3.7 (2.5-4.0) gm/dl Albumin/Globulin Ratio 1.1 (0.9-2) Lipase 128 (73-393) U/L HCG, Quant Urine Color Dark Yellow Urine Appearance Clear (Clear) Urine pH 5.5 (4.5-7.5) Ur Specific [place] 1.024 (1.000-1.030) Urine Protein Trace H (Negative) Urine Glucose (UA) Negative (Negative) Urine Ketones 3+ H (Negative) Urine Blood Negative (Negative) Urine Nitrite Negative (Negative) Urine Bilirubin Negative (Negative) Urine Urobilinogen Negative (Negative) Ur Leukocyte Esterase Negative (Negative) Urine WBC (Auto) 5-10 H (0-5) /hpf Urine RBC (Auto) 0-4 (0-4) /hpf U Hyaline Cast (Auto) 5-10 H (0-5) /lpf U Epithel Cells (Auto) >30 H (0-5) /lpf Urine Bacteria (Auto) 1+ H (Negative) COVID-19 Eval Order Blood Type Blood Type Recheck Antibody Screen Crossmatch 02/01/21 02/01/21 02/01/21 Range/Units 17:04 18:59 21:20 WBC (4.8-10.8) K/uL RBC (4.2-5.4) M/uL Hgb (12.0-16.0) g/dL Hct (37-47) % MCV (80-100) fL MCH (25-34) pg MCHC (32-36) g/dL RDW Std Deviation (36.4-46.3) fL RDW Coeff of Diamond (11.5-14.5) % Plt Count (130-400) K/uL MPV (7.4-10.4) fL Immature Gran % (Auto) % Neut % (Auto) % Lymph % (Auto) % Burnett % (Auto) % Eos % (Auto) % Baso % (Auto) % Neut # (Auto) (1.4-6.5) K/uL Lymph # (Auto) (1.2-3.4) K/uL [place] # (Auto) (0.11-0.59) K/uL Eos # (Auto) (0-0.5) K/uL Baso # (Auto) (0-0.2) K/uL Immature Gran # (Auto) (0.00-0.02) K/uL Sodium (136-145) mmol/L Potassium (3.5-5.1) mmol/L Chloride (98-107) mmol/L Carbon Dioxide (21-32) mmol/L Anion Gap (3-11) BUN (7-18) mg/dl Creatinine (0.6-1.2) mg/dl Est Cr Clr Drug Dosing ml/min Est GFR ( Amer) ml/min Est GFR (Non-Af Amer) ml/min BUN/Creatinine Ratio (10-20) Glucose (70-99) mg/dl Calcium (8.5-10.1) mg/dl Total Bilirubin (0.2-1) mg/dl AST (15-37) U/L ALT (12-78) U/L Alkaline Phosphatase (45-117) U/L Total Protein (6.4-8.2) gm/dl Albumin (3.4-5.0) gm/dl Globulin (2.5-4.0) gm/dl Albumin/Globulin Ratio (0.9-2) Lipase (73-393) U/L HCG, Quant Cancelled 935 Urine Color Urine Appearance (Clear) Urine pH (4.5-7.5) Ur Specific [place] (1.000-1.030) Urine Protein (Negative) Urine Glucose (UA) (Negative) Urine Ketones (Negative) Urine Blood (Negative) Urine Nitrite (Negative) Urine Bilirubin (Negative) Urine Urobilinogen (Negative) Ur Leukocyte Esterase (Negative) Urine WBC (Auto) (0-5) /hpf Urine RBC (Auto) (0-4) /hpf U Hyaline Cast (Auto) (0-5) /lpf U Epithel Cells (Auto) (0-5) /lpf Urine Bacteria (Auto) (Negative) COVID-19 Eval Order Blood Type O Positive Blood Type Recheck Antibody Screen NEGATIVE Crossmatch See Detail 02/01/21 02/01/21 02/01/21 Range/Units 21:20 21:23 22:20 WBC (4.8-10.8) K/uL RBC (4.2-5.4) M/uL Hgb 12.3 (12.0-16.0) g/dL Hct 35.7 L (37-47) % MCV (80-100) fL MCH (25-34) pg MCHC (32-36) g/dL RDW Std Deviation (36.4-46.3) fL RDW Coeff of Diamond (11.5-14.5) % Plt Count (130-400) K/uL MPV (7.4-10.4) fL Immature Gran % (Auto) % Neut % (Auto) % Lymph % (Auto) % Burnett % (Auto) % Eos % (Auto) % Baso % (Auto) % Neut # (Auto) (1.4-6.5) K/uL Lymph # (Auto) (1.2-3.4) K/uL [place] # (Auto) (0.11-0.59) K/uL Eos # (Auto) (0-0.5) K/uL Baso # (Auto) (0-0.2) K/uL Immature Gran # (Auto) (0.00-0.02) K/uL Sodium (136-145) mmol/L Potassium (3.5-5.1) mmol/L Chloride (98-107) mmol/L Carbon Dioxide (21-32) mmol/L Anion Gap (3-11) BUN (7-18) mg/dl Creatinine (0.6-1.2) mg/dl Est Cr Clr Drug Dosing ml/min Est GFR ( Amer) ml/min Est GFR (Non-Af Amer) ml/min BUN/Creatinine Ratio (10-20) Glucose (70-99) mg/dl Calcium (8.5-10.1) mg/dl Total Bilirubin (0.2-1) mg/dl AST (15-37) U/L ALT (12-78) U/L Alkaline Phosphatase (45-117) U/L Total Protein (6.4-8.2) gm/dl Albumin (3.4-5.0) gm/dl Globulin (2.5-4.0) gm/dl Albumin/Globulin Ratio (0.9-2) Lipase (73-393) U/L HCG, Quant Urine Color Urine Appearance (Clear) Urine pH (4.5-7.5) Ur Specific [place] (1.000-1.030) Urine Protein (Negative) Urine Glucose (UA) (Negative) Urine Ketones (Negative) Urine Blood (Negative) Urine Nitrite (Negative) Urine Bilirubin (Negative) Urine Urobilinogen (Negative) Ur Leukocyte Esterase (Negative) Urine WBC (Auto) (0-5) /hpf Urine RBC (Auto) (0-4) /hpf U Hyaline Cast (Auto) (0-5) /lpf U Epithel Cells (Auto) (0-5) /lpf Urine Bacteria (Auto) (Negative) COVID-19 Eval Order Covid19 at [facility] Blood Type Blood Type Recheck O Positive Antibody Screen Crossmatch
[2021-02-01] MEDS ORDERED: MIDAZOLAM HCL 1 MG/ML 2ML VIAL ONE (23:14)
[2021-02-01] MEDS ORDERED: PROPOFOL IV EMULSION 10 MG/ML 20 ML VIAL IV ONE (23:15)
[2021-02-01] MEDS ORDERED: ONDANSETRON INJ 2 MG/ML 2 ML VIAL ONE (23:15)
[2021-02-01] MEDS ORDERED: DEXAMETHASONE SOD INJ 4 MG/ML VIAL ONE (23:15)
[2021-02-01] MEDS ORDERED: NEOSTIGMINE METHYLSULFATE 1 MG/ML 10ML VIAL ONE (23:15)
[2021-02-01] MEDS ORDERED: fentaNYL citrate 100 MCG/2 ML VIAL ONE (23:15)
[2021-02-01] MEDS ORDERED: ROCURONIUM BROMIDE 10 MG/ML 5 ML VIAL IV ONE ×5 (23:15)
[2021-02-01] MEDS ORDERED: GLYCOPYRROLATE 0.2 MG/ML VIAL ONE (23:15)
[2021-02-01] MEDS ORDERED: BUPIVACAINE 0.5 % 5 MG/1 ML MPF 30ML VIAL ONE (23:45)
[2021-02-01] MEDS ORDERED: EPINEPHrine INJ 1 MG/ML AMP ONE (23:45)
[2021-02-02] MEDS ORDERED: SIMETHICONE 80 MG CHEW PO PRN (00:05)
[2021-02-02] MEDS ORDERED: ONDANSETRON INJ 2 MG/ML 2 ML VIAL IV PRN ×2 (00:05→00:23)
[2021-02-02] MEDS ORDERED: MAGNESIUM HYDROXIDE SUSP 30 ML UDC PO PRN (00:05)
[2021-02-02] MEDS ORDERED: PROMETHAZINE HCL 12.5 MG in SODIUM CHLORIDE 0.9% 50 ML IV PRN ×2 (00:05→00:23)
[2021-02-02] MEDS ORDERED: MEPERIDINE HCL 25 MG/ML CARP/VIAL IV PRN (00:05)
[2021-02-02] MEDS ORDERED: ACETAMINOPHEN 325 MG TAB PO PRN (00:05)
[2021-02-02] MEDS ORDERED: oxyCODONE/ACETAMINOPHEN 5mg/325mg TAB PO PRN (00:05)
[2021-02-02] MEDS ORDERED: MEPERIDINE HCL 50 MG/ML CARP IV PRN (00:05)
[2021-02-02] MEDS ORDERED: IBUPROFEN 600 MG TAB PO PRN (00:05)
[2021-02-02] MEDS ORDERED: PROMETHAZINE HCL 25 MG in SODIUM CHLORIDE 0.9% 50 ML IV PRN (00:05)
[2021-02-02] MEDS ORDERED: LACTATED RINGER'S 1,000 ML IV SCH (00:15)
[2021-02-02] MEDS ORDERED: KETOROLAC 30 MG/ML VIAL IV PRN (00:23)
[2021-02-02] MEDS ORDERED: fentaNYL citrate 100 MCG/2 ML VIAL IV PRN (00:23)
[2021-02-02] MEDS ORDERED: HYDROmorphone INJ 2 MG/ML SYR/VIAL IV PRN (00:23)
[2021-02-02] MEDS ORDERED: ATROPINE SULFATE 0.1 MG/ML 10ML SYR IV PRN (00:23)
[2021-02-02] MEDS ORDERED: METOCLOPRAMIDE HCL INJ 5 MG/ML 2 ML VIAL IV PRN (00:23)
[2021-02-02] MEDS ORDERED: ePHEDrine sulfate 50 MG/ML AMP IV PRN (00:23)
--- NOTE | 2021-02-02 00:23 | Anesthesiology Consultation ---
Date of Service February 02, 2021 Assessment & Plan Chart Review Chart Review: Acceptable Risk for Surgery Consults Requested none History Surgery Operation Date: 02/01/21 23:30 Proposed Procedures p Laparoscopic Ectopic - Anna Tamayo MD Height/Weight Height: 5 ft 2 in Weight: 81.8 kg Allergies Allergy/AdvReac Type Severity Reaction Status Date / Time latex Allergy Severe Anaphylaxis Unverified 02/01/21 17:27 ,Rash avocado AdvReac Severe Anaphylaxis Unverified 02/01/21 17:27 ,Rash Medications Home Medications Medication Instructions Recorded Confirmed Last Taken alprazolam 0.5 mg tablet (Xanax) 0.5 mg PO TID PRN 02/01/21 02/01/21 Unknown estradiol 2 mg tablet (Estrace) 6 mg PO HS 02/01/21 02/01/21 01/31/21 progesterone micronized 100 mg 0 mg VAGINAL TID 02/01/21 02/01/21 02/01/21 07:30 capsule (Prometrium) NPO Date Last Intake of Fluids: 02/01/21 Time Last Intake of Fluids: 12:30 Date Last Intake of Solids: 02/01/21 Time Last Intake of Solids: 12:30 Past Medical History Medical History History of in vitro fertilization Peroneal tendonitis Single pelvic kidney Past Surgical History Surgical History History of bilateral salpingectomy Social History Smoking Status: Former smoker Physical Exam Vital Signs Last Vital Signs Temp 36.6 C 02/01/21 13:15 Pulse 97 H 02/01/21 23:22 Resp 18 02/01/21 23:22 BP 121/76 02/01/21 23:22 Pulse Ox 96 02/01/21 23:22 Testing Laboratory Results 02/01/21 21:20 02/01/21 13:43 HCG, Quant 935 mIU/ml 02/01/21 18:59 Urine Color Dark Yellow 02/01/21 16:38 Urine Appearance Clear (Clear) 02/01/21 16:38 Urine pH 5.5 (4.5-7.5) 02/01/21 16:38 Ur Specific [place] 1.024 (1.000-1.030) 02/01/21 16:38 Urine Protein Trace (Negative) H 02/01/21 16:38 Urine Glucose (UA) Negative (Negative) 02/01/21 16:38 Urine Ketones 3+ (Negative) H 02/01/21 16:38 Urine Nitrite Negative (Negative) 02/01/21 16:38 Ur Leukocyte Esterase Negative (Negative) 02/01/21 16:38 Urine WBC (Auto) 5-10 /hpf (0-5) H 02/01/21 16:38 Urine RBC (Auto) 0-4 /hpf (0-4) 02/01/21 16:38 U Hyaline Cast (Auto) 5-10 /lpf (0-5) H 02/01/21 16:38 U Epithel Cells (Auto) >30 /lpf (0-5) H 02/01/21 16:38 Urine Bacteria (Auto) 1+ (Negative) H 02/01/21 16:38 Blood Type O Positive 02/01/21 21:20 Antibody Screen NEGATIVE 02/01/21 21:20 02/01/21 02/01/21 18:59 17:04 HCG, Quant 935 Cancelled
[2021-02-02] MEDS ORDERED: FLOSEAL HEMOSTATIC MATRIX 10ML TOP ONE (01:26)
--- NOTE | 2021-02-02 01:29 | Post Operative Brief Note ---
Immediate Post Op Note v1 Date of Surgery February 02, 2021 Pre & Post Diagnosis Operation Date: 02/01/21 23:30 <No data on this case meets the specified criteria> I identified the patient and participated in the time-out.: Yes Procedure Operation Date: 02/01/21 23:30 <No data on this case meets the specified criteria> Op Laparoscopy, evacuation of blood cloths from pelvis and abdomen, fulguration of of right uterine cornual stump, [place] Surgeon Anna Tamayo MD System Support Developer OR nurse Estimated Blood Loss 600 Findings Consistent with Post-Op Diagnosis Drains Brown Catheter (200 ml) Anesthesia Type General
[2021-02-02] MEDS ORDERED: ACETAMINOPHEN 1,000 MG/100 ML VIAL IV PRN (01:31)
--- NOTE | 2021-02-02 02:07 | Anesthesiology Progress Note ---
Date of Service February 02, 2021 Anesthesia Post Procedure Vital Signs Vital Signs: Temp Pulse Pulse Pulse Resp BP BP 02/02/21 02:00 76 18 113/72 02/02/21 01:50 75 18 118/72 02/02/21 01:40 36.4 C L 101 H 18 122/80 02/01/21 23:22 97 H 18 121/76 02/01/21 19:18 79 16 126/88 02/01/21 17:16 77 16 126/89 02/01/21 15:49 104 H 17 137/84 02/01/21 13:15 36.6 C 111 H 18 140/88 Pulse Ox 02/02/21 02:00 96 02/02/21 01:50 95 02/02/21 01:40 97 02/01/21 23:22 96 02/01/21 19:18 95 02/01/21 17:16 96 02/01/21 15:49 98 02/01/21 13:15 95 Pain Intensity Abdomen: Pain Intensity: 8 Transfer of Care Handoff Completed per policy Notes Mental Status: alert / awake / arousable and participated in evaluation Patient Amnestic to Procedure: Yes Nausea / Vomiting: adequately controlled Pain: adequately controlled Airway Patency, RR, SpO2: stable & adequate BP & HR: stable & adequate Hydration State: stable & adequate Anesthetic Complications: no major complications apparent
[2021-02-02] MEDS ORDERED: ALPRAZolam 0.5 MG TABLET PO PRN (03:06)
[2021-02-02 06:34] LABS: Basophils # (auto) 0.01 K/uL (0-0.2); Basophils % (auto) 0.1 %; Hematocrit (blood only) 32.1 % (37-47); Hemoglobin 10.8 g/dL (12.0-16.0); Immature Granulocytes # (auto) 0.02 K/uL (0.00-0.02); Immature Granulocytes % (auto) 0.2 %; Lymphocytes # (auto) 1.55 K/uL (1.2-3.4); Lymphocytes % (auto) 12.9 %; Mean Corpuscular Hemoglobin 32.4 pg (25-34); Mean Corpuscular Hgb Conc 33.6 g/dL (32-36); Mean Corpuscular Volume 96.4 fL (80-100); Mean Platelet Volume 9.5 fL (7.4-10.4); Monocytes # (auto) 0.28 K/uL (0.11-0.59); Monocytes % (auto) 2.3 %; Neutrophils # (auto) 10.11 K/uL (1.4-6.5); Neutrophils % (auto) 84.5 %; Platelet Count 281 K/uL (130-400); RDW Coefficient of Variation 12.1 % (11.5-14.5); RDW Standard Deviation 42.7 fL (36.4-46.3); Red Blood Count 3.33 M/uL (4.2-5.4); White Blood Count 11.97 K/uL (4.8-10.8)
--- NOTE | 2021-02-02 07:21 | Operative Report (OR) ---
DATE OF SURGERY: 02/02/2021. 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 PROCEDURE: Operative laparoscopy, evacuation of blood clots from the pelvis and abdomen, fulguration of the right uterine cornual stump, lysis of adhesions. SURGEON: Anna Tamayo MD MEAL COOK: OR nurses. ESTIMATED BLOOD LOSS: 600 mL of dark clots emptied from the abdomen and pelvis, otherwise minimal EBL during surgery. DRAINS: Brown catheter drained 200 mL of clear urine. ANESTHESIA: General, Dr. Guzman. FINDINGS: As above and postoperative diagnoses. COMPLICATIONS: None. DESCRIPTION OF PROCEDURE: The patient was taken to the operating room where general anesthesia was given without difficulty. She was placed in dorsal lithotomy position and prepared and draped in the usual sterile fashion. A Brown catheter was placed into the bladder to drain during surgery and exam under anesthesia was done, felt a normal cervix and anteverted right sided uterus, fullness in culde sac and right adnexa. Speculum was placed in the patient's vagina. Cervix was visualized, grasped with single tooth tenaculum. The uterine manipulator was placed into the uterine cavity to provide manipulation during surgery. Single-tooth tenaculum was removed. Gloves were changed. Speculum was removed and the gloves were changed and then attention was turned to the patient's abdomen where a periumbilical skin incision was made vertically from the old scar. The fat tissue was dissected off with the tip of hemostat. Fascia was identified, grasped with 2 Fina clamps, elevated, and it was incised in the middle with a scalpel and then hemostat was entered through the fascial opening into the peritoneum and then small S [place] was placed and then an 11 mm operative scope was placed through this opening and under direct visualization, abdominal cavity was entered with the scope and then CO2 gas was started and the pressure was set to 15 mmHg and the abdomen was distended. Then intraabdominal placement was confirmed with the scope and then upon entry, there were some blood clots around the bowel loops and omentum. The patient was placed on the slight Trendelenburg position. Cul-de-sac was seen to be full of blood clots. Most were old dark cloths and some were red blood. The uterus was brought to the midline and then we were able to see the left ovary and the left pelvic sidewall. One edge of the left ovary was starting from internal ring of the inguinal canal and ovary appeared to be normal and hemostatic and the uterine fundus was normal except it was unicornuate and there was no cornua on the left side. There was no tube on the left side. On the right side, there was a stump, which was from right salpingectomy before; it was oozing blood around its stump and the posterior uterine wall. There were adhesions on the posterior uterine wall and cul-de-sac and the filmy adhesions were seen. Then two more trocars, 5 mm each, were placed on the right and left lower quadrants under direct visualization with the scope. Then the suction tip was introduced from that side. The blood clots in the pelvis and the gutters were suctioned and then those filmy adhesions on the posterior uterine wall around the right ovary were incised with the LigaSure and we were able to see the right ovary completely and it appeared to be hemostatic with no signs of ectopic on it and no bleeding from it. The oozing part of the right cornual stump was coagulated with the tip of LigaSure device and was hemostatic. The pelvis and uterus was irrigated with warm normal saline and suctioned. It was hemostatic. On the right pelvic sidewall there were small red dots indicating endometriosis and attention was turned to the upper abdomen where some clots were suctioned around the liver and the gutters and then it was clean. Again, attention was turned to the pelvis again, it was irrigated with warm normal saline and suctioned multiple times. We waited plenty of time and no more bleeding was seen. Pelvis was dry. No more blood coming from upper abdomen nor from the pelvis. Then FloSeal was introduced from the 5 mm trocar and the right cornual stump and the posterior uterine wall were covered with FloSeal to prevent further oozing and then a decision was made to end the procedure. Pictures were taken before and after surgery and all trocars were removed from the abdomen. Gas was emptied. The fascial incision at the umbilical site was repaired with 0 Vicryl in a running fashion. The skin incisions were repaired with 4-0 Monocryl in a subcuticular fashion. The uterine manipulator was removed. Cervix was hemostatic. The patient tolerated the procedure well. Sponge, lap, needle count was correct x3. She was cleaned, dried off. She was taken to recovery room in stable condition. No complications happened. I was present during whole procedure. The patient was given 2 grams of cefazolin before surgery. Job ID: [id number] [facility]
--- NOTE | 2021-02-02 10:15 | Gynecologic Progress Note ---
Date of Service February 02, 2021 Assessment & Plan Admission and Anticipated Discharge Date Admission Date: February 02, 2021 Subjective pain level 4 mostly gas pain has not passed gas doing well plans for d/c after lunch Physical Exam Constitutional: WD/WN, vitals as above comfortable abdomen soft and non-tender incisions c/d/i no edema neg Yesica's plan for d/c this afternoon Results & Data ([facility]) Vital Signs (Past 12 Hours) Vital Signs Temp Pulse Pulse Pulse Resp BP Pulse Ox 02/02/21 07:20 37.0 C 99 H 18 109/68 95 02/02/21 03:55 36.8 C 102 H 18 114/80 95 02/02/21 03:33 36.8 C 96 H 18 118/78 97 02/02/21 02:55 36.8 C 96 H 18 118/78 97 02/02/21 02:30 36.3 C L 77 18 107/73 94 02/02/21 02:20 78 16 112/73 95 02/02/21 02:10 91 H 18 104/80 95 02/02/21 02:00 76 18 113/72 96 02/02/21 01:50 75 18 118/72 95 02/02/21 01:40 36.4 C L 101 H 18 122/80 97 02/01/21 23:22 97 H 18 121/76 96 Laboratory Results Laboratory Results - last 72 hr 02/01/21 02/01/21 02/01/21 13:43 13:43 16:38 WBC 15.52 H RBC 4.19 L Hgb 13.8 Hct 39.4 MCV 94.0 MCH 32.9 MCHC 35.0 RDW Std Deviation 40.8 RDW Coeff of Diamond 12.0 Plt Count 360 MPV 9.5 Immature Gran % (Auto) 0.2 Neut % (Auto) 77.2 Lymph % (Auto) 18.7 [place] % (Auto) 3.7 Eos % (Auto) 0.1 Baso % (Auto) 0.1 Neut # (Auto) 11.98 H Lymph # (Auto) 2.90 [place] # (Auto) 0.58 Eos # (Auto) 0.01 Baso # (Auto) 0.02 Immature Gran # (Auto) 0.03 H Sodium 136 Potassium 3.8 Chloride 107 Carbon Dioxide 21 Anion Gap 8.0 BUN 8 Creatinine 0.78 Est Cr Clr Drug Dosing 102.6 Est GFR ( Amer) 116.6 Est GFR (Non-Af Amer) 100.6 BUN/Creatinine Ratio 10.2 Glucose 137 H Calcium 9.0 Total Bilirubin 0.3 AST 19 ALT 35 Alkaline Phosphatase 65 Total Protein 7.7 Albumin 4.0 Globulin 3.7 Albumin/Globulin Ratio 1.1 Lipase 128 HCG, Quant Urine Color Dark Yellow Urine Appearance Clear Urine pH 5.5 Ur Specific [place] 1.024 Urine Protein Trace H Urine Glucose (UA) Negative Urine Ketones 3+ H Urine Blood Negative Urine Nitrite Negative Urine Bilirubin Negative Urine Urobilinogen Negative Ur Leukocyte Esterase Negative Urine WBC (Auto) 5-10 H Urine RBC (Auto) 0-4 U Hyaline Cast (Auto) 5-10 H U Epithel Cells (Auto) >30 H Urine Bacteria (Auto) 1+ H COVID-19 Eval Order SARS-CoV-2 (PCR) Blood Type Blood Type Recheck Antibody Screen Crossmatch 02/01/21 02/01/21 02/01/21 17:04 18:59 21:20 WBC RBC Hgb Hct MCV MCH MCHC RDW Std Deviation RDW Coeff of Diamond Plt Count MPV Immature Gran % (Auto) Neut % (Auto) Lymph % (Auto) [place] % (Auto) Eos % (Auto) Baso % (Auto) Neut # (Auto) Lymph # (Auto) [place] # (Auto) Eos # (Auto) Baso # (Auto) Immature Gran # (Auto) Sodium Potassium Chloride Carbon Dioxide Anion Gap BUN Creatinine Est Cr Clr Drug Dosing Est GFR ( Amer) Est GFR (Non-Af Amer) BUN/Creatinine Ratio Glucose Calcium Total Bilirubin AST ALT Alkaline Phosphatase Total Protein Albumin Globulin Albumin/Globulin Ratio Lipase HCG, Quant Cancelled 935 Urine Color Urine Appearance Urine pH Ur Specific [place] Urine Protein Urine Glucose (UA) Urine Ketones Urine Blood Urine Nitrite Urine Bilirubin Urine Urobilinogen Ur Leukocyte Esterase Urine WBC (Auto) Urine RBC (Auto) U Hyaline Cast (Auto) U Epithel Cells (Auto) Urine Bacteria (Auto) COVID-19 Eval Order SARS-CoV-2 (PCR) Blood Type O Positive Blood Type Recheck Antibody Screen NEGATIVE Crossmatch See Detail 02/01/21 02/01/21 02/01/21 21:20 21:23 22:20 WBC RBC Hgb 12.3 Hct 35.7 L MCV MCH MCHC RDW Std Deviation RDW Coeff of Diamond Plt Count MPV Immature Gran % (Auto) Neut % (Auto) Lymph % (Auto) [place] % (Auto) Eos % (Auto) Baso % (Auto) Neut # (Auto) Lymph # (Auto) [place] # (Auto) Eos # (Auto) Baso # (Auto) Immature Gran # (Auto) Sodium Potassium Chloride Carbon Dioxide Anion Gap BUN Creatinine Est Cr Clr Drug Dosing Est GFR ( Amer) Est GFR (Non-Af Amer) BUN/Creatinine Ratio Glucose Calcium Total Bilirubin AST ALT Alkaline Phosphatase Total Protein Albumin Globulin Albumin/Globulin Ratio Lipase HCG, Quant Urine Color Urine Appearance Urine pH Ur Specific [place] Urine Protein Urine Glucose (UA) Urine Ketones Urine Blood Urine Nitrite Urine Bilirubin Urine Urobilinogen Ur Leukocyte Esterase Urine WBC (Auto) Urine RBC (Auto) U Hyaline Cast (Auto) U Epithel Cells (Auto) Urine Bacteria (Auto) COVID-19 Eval Order Covid19 at [facility] SARS-CoV-2 (PCR) Blood Type Blood Type Recheck O Positive Antibody Screen Crossmatch 02/01/21 02/02/21 22:20 06:14 WBC 11.97 H RBC 3.33 L Hgb 10.8 L Hct 32.1 L MCV 96.4 MCH 32.4 MCHC 33.6 RDW Std Deviation 42.7 RDW Coeff of Diamond 12.1 Plt Count 281 MPV 9.5 Immature Gran % (Auto) 0.2 Neut % (Auto) 84.5 Lymph % (Auto) 12.9 [place] % (Auto) 2.3 Eos % (Auto) 0.0 Baso % (Auto) 0.1 Neut # (Auto) 10.11 H Lymph # (Auto) 1.55 [place] # (Auto) 0.28 Eos # (Auto) 0.00 Baso # (Auto) 0.01 Immature Gran # (Auto) 0.02 Sodium Potassium Chloride Carbon Dioxide Anion Gap BUN Creatinine Est Cr Clr Drug Dosing Est GFR ( Amer) Est GFR (Non-Af Amer) BUN/Creatinine Ratio Glucose Calcium Total Bilirubin AST ALT Alkaline Phosphatase Total Protein Albumin Globulin Albumin/Globulin Ratio Lipase HCG, Quant Urine Color Urine Appearance Urine pH Ur Specific [place] Urine Protein Urine Glucose (UA) Urine Ketones Urine Blood Urine Nitrite Urine Bilirubin Urine Urobilinogen Ur Leukocyte Esterase Urine WBC (Auto) Urine RBC (Auto) U Hyaline Cast (Auto) U Epithel Cells (Auto) Urine Bacteria (Auto) COVID-19 Eval Order SARS-CoV-2 (PCR) NEGATIVE Blood Type Blood Type Recheck Antibody Screen Crossmatch
--- NOTE | 2021-02-02 11:13 | Obstetrical Progress Note ---
Date of Service February 02, 2021 Assessment & Plan Admission and Anticipated Discharge Date Admission Date: February 02, 2021 Subjective Patient is seen and examined. She feels much better compared to yesterday before surgery. Pain is under control with oral meds. Ambulating without dizziness Voiding without difficulty Tolerating regular diet with out N&V Flatus + BM neg Bleeding is minimal No fever/ chills/ CP/ SOB/ N&V/ Leg pain Explained about surgery and shown pictures Vital Signs Temp Pulse Pulse Pulse Resp BP Pulse Ox 02/02/21 07:20 37.0 C 99 H 18 109/68 95 02/02/21 03:55 36.8 C 102 H 18 114/80 95 02/02/21 03:33 36.8 C 96 H 18 118/78 97 02/02/21 02:55 36.8 C 96 H 18 118/78 97 02/02/21 02:30 36.3 C L 77 18 107/73 94 02/02/21 02:20 78 16 112/73 95 02/02/21 02:10 91 H 18 104/80 95 02/02/21 02:00 76 18 113/72 96 02/02/21 01:50 75 18 118/72 95 02/02/21 01:40 36.4 C L 101 H 18 122/80 97 02/01/21 23:22 97 H 18 121/76 96 Lab Results 02/01/21 02/01/21 02/01/21 Range/Units 13:43 13:43 16:38 WBC 15.52 H (4.8-10.8) K/uL RBC 4.19 L (4.2-5.4) M/uL Hgb 13.8 (12.0-16.0) g/dL Hct 39.4 (37-47) % MCV 94.0 (80-100) fL MCH 32.9 (25-34) pg MCHC 35.0 (32-36) g/dL RDW Std Deviation 40.8 (36.4-46.3) fL RDW Coeff of Diamond 12.0 (11.5-14.5) % Plt Count 360 (130-400) K/uL MPV 9.5 (7.4-10.4) fL Immature Gran % (Auto) 0.2 % Neut % (Auto) 77.2 % Lymph % (Auto) 18.7 % [place] % (Auto) 3.7 % Eos % (Auto) 0.1 % Baso % (Auto) 0.1 % Neut # (Auto) 11.98 H (1.4-6.5) K/uL Lymph # (Auto) 2.90 (1.2-3.4) K/uL [place] # (Auto) 0.58 (0.11-0.59) K/uL Eos # (Auto) 0.01 (0-0.5) K/uL Baso # (Auto) 0.02 (0-0.2) K/uL Immature Gran # (Auto) 0.03 H (0.00-0.02) K/uL Sodium 136 (136-145) mmol/L Potassium 3.8 (3.5-5.1) mmol/L Chloride 107 (98-107) mmol/L Carbon Dioxide 21 (21-32) mmol/L Anion Gap 8.0 (3-11) BUN 8 (7-18) mg/dl Creatinine 0.78 (0.6-1.2) mg/dl Est Cr Clr Drug Dosing 102.6 ml/min Est GFR ( Amer) 116.6 ml/min Est GFR (Non-Af Amer) 100.6 ml/min BUN/Creatinine Ratio 10.2 (10-20) Glucose 137 H (70-99) mg/dl Calcium 9.0 (8.5-10.1) mg/dl Total Bilirubin 0.3 (0.2-1) mg/dl AST 19 (15-37) U/L ALT 35 (12-78) U/L Alkaline Phosphatase 65 (45-117) U/L Total Protein 7.7 (6.4-8.2) gm/dl Albumin 4.0 (3.4-5.0) gm/dl Globulin 3.7 (2.5-4.0) gm/dl Albumin/Globulin Ratio 1.1 (0.9-2) Lipase 128 (73-393) U/L HCG, Quant Urine Color Dark Yellow Urine Appearance Clear (Clear) Urine pH 5.5 (4.5-7.5) Ur Specific [place] 1.024 (1.000-1.030) Urine Protein Trace H (Negative) Urine Glucose (UA) Negative (Negative) Urine Ketones 3+ H (Negative) Urine Blood Negative (Negative) Urine Nitrite Negative (Negative) Urine Bilirubin Negative (Negative) Urine Urobilinogen Negative (Negative) Ur Leukocyte Esterase Negative (Negative) Urine WBC (Auto) 5-10 H (0-5) /hpf Urine RBC (Auto) 0-4 (0-4) /hpf U Hyaline Cast (Auto) 5-10 H (0-5) /lpf U Epithel Cells (Auto) >30 H (0-5) /lpf Urine Bacteria (Auto) 1+ H (Negative) COVID-19 Eval Order SARS-CoV-2 (PCR) (Negative) Blood Type Blood Type Recheck Antibody Screen Crossmatch 02/01/21 02/01/21 02/01/21 Range/Units 17:04 18:59 21:20 WBC (4.8-10.8) K/uL RBC (4.2-5.4) M/uL Hgb (12.0-16.0) g/dL Hct (37-47) % MCV (80-100) fL MCH (25-34) pg MCHC (32-36) g/dL RDW Std Deviation (36.4-46.3) fL RDW Coeff of Diamond (11.5-14.5) % Plt Count (130-400) K/uL MPV (7.4-10.4) fL Immature Gran % (Auto) % Neut % (Auto) % Lymph % (Auto) % [place] % (Auto) % Eos % (Auto) % Baso % (Auto) % Neut # (Auto) (1.4-6.5) K/uL Lymph # (Auto) (1.2-3.4) K/uL [place] # (Auto) (0.11-0.59) K/uL Eos # (Auto) (0-0.5) K/uL Baso # (Auto) (0-0.2) K/uL Immature Gran # (Auto) (0.00-0.02) K/uL Sodium (136-145) mmol/L Potassium (3.5-5.1) mmol/L Chloride (98-107) mmol/L Carbon Dioxide (21-32) mmol/L Anion Gap (3-11) BUN (7-18) mg/dl Creatinine (0.6-1.2) mg/dl Est Cr Clr Drug Dosing ml/min Est GFR ( Amer) ml/min Est GFR (Non-Af Amer) ml/min BUN/Creatinine Ratio (10-20) Glucose (70-99) mg/dl Calcium (8.5-10.1) mg/dl Total Bilirubin (0.2-1) mg/dl AST (15-37) U/L ALT (12-78) U/L Alkaline Phosphatase (45-117) U/L Total Protein (6.4-8.2) gm/dl Albumin (3.4-5.0) gm/dl Globulin (2.5-4.0) gm/dl Albumin/Globulin Ratio (0.9-2) Lipase (73-393) U/L HCG, Quant Cancelled 935 Urine Color Urine Appearance (Clear) Urine pH (4.5-7.5) Ur Specific [place] (1.000-1.030) Urine Protein (Negative) Urine Glucose (UA) (Negative) Urine Ketones (Negative) Urine Blood (Negative) Urine Nitrite (Negative) Urine Bilirubin (Negative) Urine Urobilinogen (Negative) Ur Leukocyte Esterase (Negative) Urine WBC (Auto) (0-5) /hpf Urine RBC (Auto) (0-4) /hpf U Hyaline Cast (Auto) (0-5) /lpf U Epithel Cells (Auto) (0-5) /lpf Urine Bacteria (Auto) (Negative) COVID-19 Eval Order SARS-CoV-2 (PCR) (Negative) Blood Type O Positive Blood Type Recheck Antibody Screen NEGATIVE Crossmatch See Detail 02/01/21 02/01/21 02/01/21 Range/Units 21:20 21:23 22:20 WBC (4.8-10.8) K/uL RBC (4.2-5.4) M/uL Hgb 12.3 (12.0-16.0) g/dL Hct 35.7 L (37-47) % MCV (80-100) fL MCH (25-34) pg MCHC (32-36) g/dL RDW Std Deviation (36.4-46.3) fL RDW Coeff of Diamond (11.5-14.5) % Plt Count (130-400) K/uL MPV (7.4-10.4) fL Immature Gran % (Auto) % Neut % (Auto) % Lymph % (Auto) % [place] % (Auto) % Eos % (Auto) % Baso % (Auto) % Neut # (Auto) (1.4-6.5) K/uL Lymph # (Auto) (1.2-3.4) K/uL [place] # (Auto) (0.11-0.59) K/uL Eos # (Auto) (0-0.5) K/uL Baso # (Auto) (0-0.2) K/uL Immature Gran # (Auto) (0.00-0.02) K/uL Sodium (136-145) mmol/L Potassium (3.5-5.1) mmol/L Chloride (98-107) mmol/L Carbon Dioxide (21-32) mmol/L Anion Gap (3-11) BUN (7-18) mg/dl Creatinine (0.6-1.2) mg/dl Est Cr Clr Drug Dosing ml/min Est GFR ( Amer) ml/min Est GFR (Non-Af Amer) ml/min BUN/Creatinine Ratio (10-20) Glucose (70-99) mg/dl Calcium (8.5-10.1) mg/dl Total Bilirubin (0.2-1) mg/dl AST (15-37) U/L ALT (12-78) U/L Alkaline Phosphatase (45-117) U/L Total Protein (6.4-8.2) gm/dl Albumin (3.4-5.0) gm/dl Globulin (2.5-4.0) gm/dl Albumin/Globulin Ratio (0.9-2) Lipase (73-393) U/L HCG, Quant Urine Color Urine Appearance (Clear) Urine pH (4.5-7.5) Ur Specific [place] (1.000-1.030) Urine Protein (Negative) Urine Glucose (UA) (Negative) Urine Ketones (Negative) Urine Blood (Negative) Urine Nitrite (Negative) Urine Bilirubin (Negative) Urine Urobilinogen (Negative) Ur Leukocyte Esterase (Negative) Urine WBC (Auto) (0-5) /hpf Urine RBC (Auto) (0-4) /hpf U Hyaline Cast (Auto) (0-5) /lpf U Epithel Cells (Auto) (0-5) /lpf Urine Bacteria (Auto) (Negative) COVID-19 Eval Order Covid19 at [facility] SARS-CoV-2 (PCR) (Negative) Blood Type Blood Type Recheck O Positive Antibody Screen Crossmatch 02/01/21 02/02/21 Range/Units 22:20 06:14 WBC 11.97 H (4.8-10.8) K/uL RBC 3.33 L (4.2-5.4) M/uL Hgb 10.8 L (12.0-16.0) g/dL Hct 32.1 L (37-47) % MCV 96.4 (80-100) fL MCH 32.4 (25-34) pg MCHC 33.6 (32-36) g/dL RDW Std Deviation 42.7 (36.4-46.3) fL RDW Coeff of Diamond 12.1 (11.5-14.5) % Plt Count 281 (130-400) K/uL MPV 9.5 (7.4-10.4) fL Immature Gran % (Auto) 0.2 % Neut % (Auto) 84.5 % Lymph % (Auto) 12.9 % [place] % (Auto) 2.3 % Eos % (Auto) 0.0 % Baso % (Auto) 0.1 % Neut # (Auto) 10.11 H (1.4-6.5) K/uL Lymph # (Auto) 1.55 (1.2-3.4) K/uL [place] # (Auto) 0.28 (0.11-0.59) K/uL Eos # (Auto) 0.00 (0-0.5) K/uL Baso # (Auto) 0.01 (0-0.2) K/uL Immature Gran # (Auto) 0.02 (0.00-0.02) K/uL Sodium (136-145) mmol/L Potassium (3.5-5.1) mmol/L Chloride (98-107) mmol/L Carbon Dioxide (21-32) mmol/L Anion Gap (3-11) BUN (7-18) mg/dl Creatinine (0.6-1.2) mg/dl Est Cr Clr Drug Dosing ml/min Est GFR ( Amer) ml/min Est GFR (Non-Af Amer) ml/min BUN/Creatinine Ratio (10-20) Glucose (70-99) mg/dl Calcium (8.5-10.1) mg/dl Total Bilirubin (0.2-1) mg/dl AST (15-37) U/L ALT (12-78) U/L Alkaline Phosphatase (45-117) U/L Total Protein (6.4-8.2) gm/dl Albumin (3.4-5.0) gm/dl Globulin (2.5-4.0) gm/dl Albumin/Globulin Ratio (0.9-2) Lipase (73-393) U/L HCG, Quant Urine Color Urine Appearance (Clear) Urine pH (4.5-7.5) Ur Specific [place] (1.000-1.030) Urine Protein (Negative) Urine Glucose (UA) (Negative) Urine Ketones (Negative) Urine Blood (Negative) Urine Nitrite (Negative) Urine Bilirubin (Negative) Urine Urobilinogen (Negative) Ur Leukocyte Esterase (Negative) Urine WBC (Auto) (0-5) /hpf Urine RBC (Auto) (0-4) /hpf U Hyaline Cast (Auto) (0-5) /lpf U Epithel Cells (Auto) (0-5) /lpf Urine Bacteria (Auto) (Negative) COVID-19 Eval Order SARS-CoV-2 (PCR) NEGATIVE (Negative) Blood Type Blood Type Recheck Antibody Screen Crossmatch PE: General: Alert, orientedx3, NAD CVS: S1S2 RRR Lungs; CTAB Abd: soft, NT, ND, BS+, Incisions Clean, dry, intact Perineum intact,no VB Ext; NT, no edema AP: 30 yo s/p Laparoscopy, evacuation of blood cloths, fulguration of right cornua/ stump VSS Afebrile doing well Continue routine postop care Encourage ambulation, PO intake BHCG at noon All questions were answered D/C home this afternoon Results & Data ([facility]) Vital Signs (Past 12 Hours) Vital Signs Temp Pulse Pulse Pulse Resp BP Pulse Ox 02/02/21 07:20 37.0 C 99 H 18 109/68 95 02/02/21 03:55 36.8 C 102 H 18 114/80 95 02/02/21 03:33 36.8 C 96 H 18 118/78 97 02/02/21 02:55 36.8 C 96 H 18 118/78 97 02/02/21 02:30 36.3 C L 77 18 107/73 94 02/02/21 02:20 78 16 112/73 95 02/02/21 02:10 91 H 18 104/80 95 02/02/21 02:00 76 18 113/72 96 02/02/21 01:50 75 18 118/72 95 02/02/21 01:40 36.4 C L 101 H 18 122/80 97 02/01/21 23:22 97 H 18 121/76 96
--- NOTE | 2021-02-11 13:50 | Discharge Summary (DS) ---
DATE OF DISCHARGE: 02/02/2021. DETAILS OF ADMISSION: The patient is a 30-year-old G2, P0-1-0-1 at 5 weeks of gestation by last kristofer od and IVF with embryo transfer 3 weeks ago. She presented to ER with abnormal beta hCG co unt, no intrauterine , moderate to large amount of fluid in the pelvis suspicious for ruptur ed ectopic . 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 She was taken to the OR for operative lap aroscopy, evacuation of blood clots from the pelvis and abdomen, fulguration of right cornu of the ut erus for control of bleeding. Her surgery was uncomplicated. On postop period, the patient was doin g well, vital signs stable, afebrile. Urine output was adequate. She tolerated regular diet, ambula jose de jesus, and her H and H was stable at 10.8/32.1. Her incisions were clean, dry and intact. Her abdomen was soft, nontender, nondistended. She was feeling much better compared to before surgery. She was passing gas. She desired to be discharged home on postop day #1. Discharge instructions were given . Prescriptions were written for pain. She is to be seen in the office in a week and follow up beta hCG until 0. Job ID: [id number]
== END 2021-02-02 13:10 | disposition home or self-care (01) ==
LOC: ED 13:13 → 4N 23:28 → OR 23:28